=== PATIENT | male | born 1975 | race Two or more races ===

== ENCOUNTER 2016-06-21 00:17 | Emergency (ER) | payer SELFPAY ==
[~2016-06-21] VITALS: Ht 175.3 cm; Wt 70.3 kg
[2016-06-21] MEDS ORDERED: SODIUM CHLORIDE 0.9% 1,000 ML IV ONE ×2 (01:19→05:00)
[2016-06-21 02:32] LABS: DEFINITIVE VIEW TRANSMISSION; Hemoglobin 13.8 g/dL (13.5-17.5); Mean Corpuscular Hemoglobin 23.7 pg (28.0-32.0); Mean Corpuscular Hgb Conc. 30.8 g/dL (32.0-36.0); Mean Platelet Volume 8.3 fL (7.4-10.4); Platelet Count (auto) 262 10^3/uL (140-450); SUSPECT VIEW TRANSMISSION
[2016-06-21 02:34] LABS: Red Cell Distribution Width 23.6 % (11.6-16.0)
[2016-06-21 02:36] LABS: Promyelocytes % 0; Reactive Lymphocytes 0
[2016-06-21] MEDS ORDERED: LORazepam 2MG/ML-1ML VIAL IV ONE (02:45)
[2016-06-21 02:58] LABS: Partial Thromboplastin Time 22.1 sec (22.64-33.71); Prothrombin Time 10.4 sec (9.37-12.3)
[2016-06-21] MEDS ORDERED: SODIUM CHLORIDE 0.9% 250 ML IV ONE (03:05)
[2016-06-21 03:25] LABS: Metamyelocytes % 1; Myelocytes % 1; Platelet Estimate Adequate
[2016-06-21 03:26] LABS: Anisocytosis Slight; Ovalocytes FEW
[2016-06-21 03:27] LABS: White Blood Cell 7.2 10^3/uL (4.4-10.8)
[2016-06-21 03:46] LABS: Albumin 3.2 g/dL (3.4-5.0); BUN/Creatinine Ratio 9.3; Bilirubin, Total 0.2 mg/dL (0.2-1.0); Calcium 7.9 mg/dL (8.5-10.1); Potassium 3.8 mmol/L (3.5-5.1); Total Protein 6.6 g/dL (6.4-8.2)
[2016-06-21 07:24] VITALS: BP 112/65
== END 2016-06-21 07:33 | disposition home or self-care (01) ==
LOC: EDBD 00:17 → ER 00:25 → EDBD 00:25 → ER 07:33
DX: F10.129 Alcohol abuse with intoxication, unspecified (principal); Y90.9 Presence of alcohol in blood, level not specified; R07.9 Chest pain, unspecified
CPT/HCPCS: 36415; 71010; 80053; 80320; 84484; 85007; 85027; 85610; 85730; 93005; 96361; 96374; 99285; J2060

== ENCOUNTER 2018-05-03 21:29 | Emergency (ER) | payer SELFPAY ==
[~2018-05-03] VITALS: Ht 162.6 cm; Wt 54.4 kg
[2018-05-04 02:32] LABS: Eosinophils # (auto) 0 uL; Hemoglobin 12.4 g/dL (13.5-17.5); Monocytes # (auto) 0.3 uL; Neutrophils # (auto) 1.1 uL
[2018-05-04 02:33] LABS: Basophils # (auto) 0.1 uL; Basophils % (auto) 2.1 % (0.0-2.0); Eosinophils % (auto) 1.1 % (0.0-7.0); Hematocrit 39.5 % (41.0-53.0); Lymphocytes # (auto) 1.6 uL; Lymphocytes % (auto) 52.1 % (10.0-50.0); Mean Corpuscular Hemoglobin 24.7 pg (28.0-32.0); Mean Corpuscular Hgb Conc. 31.3 g/dL (32.0-36.0); Mean Corpuscular Volume 78.8 fL (80.0-100.0); Monocytes % (auto) 8.9 % (0.0-12.0); Neutrophils % (auto) 35.8 % (37.0-80.0); Nucleated Red Blood Cells % 0.2 %; Platelet Count (auto) 312 10^3/uL (140-450); Red Blood Cells 5.01 10^6/uL (4.5-5.90); White Blood Cell 3.2 10^3/uL (4.4-10.8)
[2018-05-04 02:49] LABS: Anion Gap 13 (5-15); BUN/Creatinine Ratio 8.7; Blood Urea Nitrogen 8 mg/dL (7-18); Calcium 9.2 mg/dL (8.5-10.1); Carbon Dioxide 24 mmol/L (21-32); Chloride 105 mmol/L (98-107); GFR African American 117 mL/min; GFR Non-African American 97 mL/min; Glucose 83 mg/dL (74-106); Potassium 4.3 mmol/L (3.5-5.1); Sodium 142 mmol/L (136-145)
[2018-05-04 02:59] LABS: Red Cell Distribution Width 24.5 % (11.8-14.3)
[2018-05-04] MEDS ORDERED: SODIUM CHLORIDE 0.9% 1,000 ML IVB ONE (06:46)
[2018-05-04] MEDS ORDERED: ONDANSETRON HCL 4 MG/2 ML VIAL IV ONE ×2 (07:00→12:45)
[2018-05-04] MEDS ORDERED: PROMETHAZINE HCL 25 MG/ML 1ML IV PRN (07:00)
[2018-05-04] MEDS ORDERED: NALBUPHINE HCL 10 MG/1ml INJECTION IV ONE (12:45)
[2018-05-04 13:08] LABS: Urine WBC None Seen /hpf (0 - 3)
[2018-05-04] MEDS ORDERED: diphenhdrAMINE HCL 50 MG/1 ML VL ONE (13:09)
[2018-05-04] MEDS ORDERED: diphenhdrAMINE HCL 50 MG/1 ML VL IV ONE (13:15)
[2018-05-04 13:27] LABS: Urine Bacteria NONE SEEN /hpf (None Seen); Urine Blood Negative /uL (Negative); Urine Specific Gravity 1.022 (1.001-1.035)
[2018-05-04 13:42] LABS: Amphetamine Screen, Urine NEGATIVE (NEGATIVE); Barbiturate Scree,Urine NEGATIVE (NEGATIVE); Benzodiazephine Screen, Urine POSITIVE (NEGATIVE); Cannabinoid Screen, Urine POSITIVE (NEGATIVE); Cocaine Screen, Urine NEGATIVE (NEGATIVE); Opiate Scree,Urine NEGATIVE (NEGATIVE); Phencyclidine Screen, Urine NEGATIVE (NEGATIVE)
[2018-05-04] MEDS ORDERED: LORazepam 0.5 MG TAB PO ONE (14:45)
[2018-05-04 15:30] VITALS: BP 138/62
== END 2018-05-04 16:04 | disposition home or self-care (01) ==
LOC: EDBD 21:29 → ER 21:37
DX: K29.20 Alcoholic gastritis without bleeding (principal); F12.10 Cannabis abuse, uncomplicated; G40.802 Other epilepsy, not intractable, without status epilepticus; F10.920 Alcohol use, unspecified with intoxication, uncomplicated; Y90.0 Blood alcohol level of less than 20 mg/100 ml; Z88.6 Allergy status to analgesic agent; Z88.8 Allergy status to other drugs, medicaments and biological substances
CPT/HCPCS: 36415; 74176; 80048; 80307; 81001; 83690; 84443; 85025; 96361; 96374; 96375; 96376; 99284; J1200; J2300; J2405; J2550; J7030; 82542

== ENCOUNTER 2018-10-18 09:24 | Inpatient (IN) | payer MEDICAID | END 2018-10-25 14:50 | disposition home or self-care (01) | LOC: ER 09:24 → TELE 11:24 → TELE-WESTW 14:12 | PROC: 0DB78ZX Excision of Stomach, Pylorus, Via Natural or Artificial Opening Endoscopic, Diagnostic (ICD-10-PCS; principal; 2018-10-21 11:54) | DX: K29.70 Gastritis, unspecified, without bleeding (principal); K85.90 Acute pancreatitis without necrosis or infection, unspecified; K76.0 Fatty (change of) liver, not elsewhere classified; E87.1 Hypo-osmolality and hyponatremia; D63.8 Anemia in other chronic diseases classified elsewhere; K27.9 Peptic ulcer, site unspecified, unspecified as acute or chronic, without hemorrhage or perforation; K57.90 Diverticulosis of intestine, part unspecified, without perforation or abscess without bleeding; K59.00 Constipation, unspecified ==

== ENCOUNTER 2018-11-20 14:17 | Inpatient (IN) | payer MEDICAID ==
[~2018-11-20] VITALS: Ht 167.6 cm; Wt 58.6 kg
[2018-11-20] MEDS ORDERED: AMMONIA 0.33 ML INHALANT IN ONE (14:34)
[2018-11-20 15:32] LABS: Basophils # (auto) 0 uL; Eosinophils # (auto) 0 uL; Lymphocytes # (auto) 1.3 uL; Monocytes # (auto) 0.5 uL; Neutrophils # (auto) 1.6 uL; White Blood Cell 3.4 10^3/uL (4.4-10.8)
[2018-11-20 15:37] LABS: Basophils % (auto) 0.8 % (0.0-2.0); Eosinophils % (auto) 0.6 % (0.0-7.0); Hematocrit 33.8 % (41.0-53.0); Hemoglobin 10.3 g/dL (13.5-17.5); Lymphocytes % (auto) 37.5 % (10.0-50.0); Mean Corpuscular Hemoglobin 22.8 pg (28.0-32.0); Mean Corpuscular Hgb Conc. 30.5 g/dL (32.0-36.0); Mean Corpuscular Volume 74.7 fL (80.0-100.0); Monocytes % (auto) 13.8 % (0.0-12.0); Neutrophils % (auto) 47.3 % (37.0-80.0); Platelet Count (auto) 190 10^3/uL (140-450); Red Blood Cells 4.52 10^6/uL (4.5-5.90)
[2018-11-20 15:40] LABS: Red Cell Distribution Width 28.8 % (11.8-14.3)
[2018-11-20] MEDS ORDERED: SODIUM CHLORIDE 0.9% 1,000 ML IV ONE (15:49)
[2018-11-20] MEDS ORDERED: SODIUM CHLORIDE 0.9% 500 ML IVB ONE (15:49)
[2018-11-20 15:51] LABS: Potassium 4.2 mmol/L (3.5-5.1)
[2018-11-20 15:59] LABS: Albumin 4.2 g/dL (3.4-5.0); BUN/Creatinine Ratio 10.1; Bilirubin, Total 0.3 mg/dL (0.2-1.0); Calcium 8.8 mg/dL (8.5-10.1); Magnesium 2.6 mg/dL (1.6-2.6); Total Protein 7.8 g/dL (6.4-8.2)
[2018-11-20] MEDS ORDERED: PROMETHAZINE HCL 25 MG/ML 1ML IV PRN (16:00)
[2018-11-20] MEDS ORDERED: MORPHINE SULFATE 4 MG/ML SYR/VIAL IV ONE (16:00)
[2018-11-20] MEDS ORDERED: DOCUSATE SOD 100 MG CAP PO PRN (17:45)
[2018-11-20] MEDS ORDERED: ALBUTEROL SULF 2.5 MG/0.5ML(0.5%) NEB SOLN NEB PRN (17:45)
[2018-11-20] MEDS ORDERED: MORPHINE SULF INJ 2 MG/ML SYRINGE 1ML IV PRN ×2 (17:45)
[2018-11-20] MEDS ORDERED: ONDANSETRON HCL 4 MG/2 ML VIAL IV PRN (17:45)
[2018-11-20] MEDS ORDERED: IPRATROPIUM BROM 0.5 MG/2.5ML INH SOL NEB PRN (17:45)
[2018-11-20] MEDS ORDERED: ACETAMINOPHEN 500 MG TAB PO PRN (17:45)
[2018-11-20] MEDS ORDERED: NITROGLYCERIN 0.4 MG SL TAB SL PRN (17:45)
[2018-11-20 18:42] LABS: Urine Bacteria NONE SEEN /hpf (None Seen); Urine Blood Negative /uL (Negative); Urine Mucus FEW (None Seen); Urine Specific Gravity 1.015 (1.001-1.035); Urine WBC 1 /hpf (0 - 3)
[2018-11-20 18:52] LABS: Amphetamine Screen, Urine NEGATIVE (NEGATIVE); Barbiturate Scree,Urine NEGATIVE (NEGATIVE); Cannabinoid Screen, Urine NEGATIVE (NEGATIVE); Cocaine Screen, Urine NEGATIVE (NEGATIVE); Opiate Scree,Urine NEGATIVE (NEGATIVE); Phencyclidine Screen, Urine NEGATIVE (NEGATIVE)
[2018-11-20 19:45] LABS: Benzodiazephine Screen, Urine NEGATIVE (NEGATIVE)
--- NOTE | 2018-11-20 20:00 | NUR ---
Patient reports pain Patent asked if he had ever taken [place] before and if he has had a reaction of any kind. Patient stated he had taken [place] before and he denies any type of reaction. Addendum: 11/21/18 at 0825 by FRANCE CARRILLO RN wrong time 2200
[2018-11-20] MEDS ORDERED: diphenhdrAMINE HCL 50 MG/1 ML VL ONE (20:08)
[2018-11-20] MEDS: FOLIC ACID 1 MG, MULTIPLE VITAMIN 10 ML, MAGNESIUM SULF SDV 50% 8 MEQ, THIAMINE INJ 100... INJ SCH ×5 (20:24)
[2018-11-20] MEDS: diphenhdrAMINE HCL 50 MG/1 ML VL IV ONE ×2 (20:26→22:47)
--- NOTE | 2018-11-20 21:30 | NUR ---
Telemetry admit from ER NABEEL ZUÑIGA admitted to Telemetry unit SBAR NOT received BY ER. Patient oriented to FRANCE CARRILLO, primary RN, unit, room, bed, and unit policies regarding patient care and visiting hours. Patient assessed and determined to be at risk or positive for seizure activity. Bed rails padded, glass sander remains on patient. Patient now on continuous telemetry monitoring, reading SR to ST. Assumed care of patient, awake and alert x4. No S/S of distress/SOB on room air. Reports ABD pain. Patient states he can not move his legs due to a seizure he had. Instructed on POC and to call for assist PRN, will continue to monitor for changes Q1hr and PRN. All questions and concerns addressed, patient verbalized understanding.
--- NOTE | 2018-11-20 21:38 | NUR ---
PT ASSESSED FOR PRN MED NEB TX. SPO2 96% ON RA, HR 90. PT DENIES ANY RESPIRATORY DISTRESS. NO TX INDICATED. PT IS AWARE TO HAVE RT PAGED IF TX NEEDED.
[2018-11-20 21:39] VITALS: BP 144/103
[2018-11-20 22:00] VITALS: BP 135/104
--- NOTE | 2018-11-20 22:20 | NUR ---
Spoke with Hospitalist Santhosh Patient having alcohol with draw and had allergic reaction to morphine in ER requesting PRN Benadryl orders received see eMAR
[2018-11-20] MEDS: LEVETIRACETAM 500 MG TAB PO SCH (22:22)
[2018-11-20] MEDS: HYDROcodone-ACET 5/325MG TAB PO PRN (22:23)
--- NOTE | 2018-11-20 22:45 | NUR ---
Patient reports Itching all over and Itching in his throat.
--- NOTE | 2018-11-20 22:47 | NUR ---
Benadryl given see eMAR.
[2018-11-20] MEDS ORDERED: chlordiazePOXIDE HCL 25 MG CAP PO SCH (23:00)
[2018-11-20] MEDS: LORazepam 2MG/ML-1ML VIAL IV PRN (23:05)
[2018-11-21] MEDS: chlordiazePOXIDE HCL 25 MG CAP PO SCH ×4 (00:28→23:48)
--- NOTE | 2018-11-21 02:38 | NUR ---
Rounds Patient sleeping in supine position HOB at 30 degrees. No S/S of distress, SOB or Seizure like activity. Right leg bent up, foot flat. left leg resting on bed bent in knee bent. Patient displays he has ability to move legs, despite previous reports of not being able to move legs and or walk.
[2018-11-21 04:40] VITALS: BP 111/73
[2018-11-21] MEDS: diphenhdrAMINE HCL 50 MG/1 ML VL IV PRN ×4 (05:21→22:02)
--- NOTE | 2018-11-21 07:30 | NUR ---
Opening Shift Note Assumed care of patient, awake and alert. No S/S of distress/SOB. Pain reported 12/21. Pain management options discussed with patient. Instructed on POC and to call for assist PRN, will continue to monitor for changes Q1hr and PRN.
[2018-11-21 08:00] VITALS: BP 126/80
[2018-11-21 09:00] VITALS: BP 126/80
--- NOTE | 2018-11-21 09:46 | NUR ---
Respiratory note: WENT IN TO ASSESS PATIENT FOR PRN BREATHING TX. PATIENT IS COMFORTABLY SLEEPING AT THIS TIME. WILL GO BACK LATER TO ASSESS PATIENT.
[2018-11-21] MEDS ORDERED: FAMOTIDINE 20 MG TAB PO SCH (10:00)
[2018-11-21] MEDS: LEVETIRACETAM 500 MG TAB PO SCH ×2 (10:46→22:02)
[2018-11-21] MEDS: HYDROcodone-ACET 5/325MG TAB PO PRN (10:47)
[2018-11-21 13:00] VITALS: BP 123/84
[2018-11-21] MEDS ORDERED: TEMAZEPAM 15 MG CAP PO PRN (13:45)
--- NOTE | 2018-11-21 14:15 | NUR ---
Respiratory note: ASSESSED PATIENT FOR PRN BREATHING TX. PATIENT IS AWAKE AND ALERT, NO RESPIRATORY DISTRESS GIVEN. PATIENT. PATIENT IS CURRENTLY ON ROOM AIR, SPO2 100%, RR 18, HR 65. PATIENT IS AWARE TO HAVE RT PAGED IF BREATHING TX IS NEEDED. WILL CONTINUE TO MONITOR PATIENT.
[2018-11-21] MEDS: FOLIC ACID 1 MG, MULTIPLE VITAMIN 10 ML, MAGNESIUM SULF SDV 50% 8 MEQ, THIAMINE INJ 100... INJ SCH ×5 (14:30)
[2018-11-21] MEDS: HYDROmorphone HCL 2 MG/ML VL IV PRN ×2 (16:29→20:32)
[2018-11-21 17:23] VITALS: BP 140/93
--- NOTE | 2018-11-21 19:00 | NUR ---
OPENING NOTE Received report from day shift RN. Patient is A&O X's 4 with no s/s of distress. Patient reports abdominal pain at this time. Will medicate as ordered. Educated patient on POC and to use call light when in need of assistance. Patient verbalized understanding. Bed is in lowest/locked position with side rails up X's 2 and call light is within reach of patient. Will continue to monitor for changes and round hourly/PRN. Bed linen was changed at this time for patient.
[2018-11-21 22:00] VITALS: BP 110/80
[2018-11-21] MEDS: LORazepam 2MG/ML-1ML VIAL IV PRN (23:49)
[2018-11-22 05:00] VITALS: BP 120/64
--- NOTE | 2018-11-22 07:30 | NUR ---
Opening Shift Note Assumed care of patient, sleeping. No S/S of distress/SOB or pain. Instructed on POC and to call for assist PRN, will continue to monitor for changes Q1hr and PRN.
[2018-11-22 08:00] VITALS: BP 103/55
[2018-11-22 10:19] VITALS: BP 103/66
[2018-11-22] MEDS: LEVETIRACETAM 500 MG TAB PO SCH ×2 (10:33→21:57)
--- NOTE | 2018-11-22 11:38 | NUR ---
Respiratory note: PT ASSESSED FOR PRN MED NEB TX. NO SOB NOTED, TX IS NOT INDICATED. POX 100% ON RA, HR 61, RR 14, B/S ARE CLEAR AND DIMINISHED THROUGHOUT. PT IS AWARE TO PRESS THE CALL LIGHT IF HE FEELS SOB TO RECEIVE A MED NEB TX.
[2018-11-22] MEDS: chlordiazePOXIDE HCL 25 MG CAP PO SCH (13:16)
[2018-11-22] MEDS: FOLIC ACID 1 MG, MULTIPLE VITAMIN 10 ML, MAGNESIUM SULF SDV 50% 8 MEQ, THIAMINE INJ 100... INJ SCH ×5 (13:16)
[2018-11-22] MEDS: HYDROmorphone HCL 2 MG/ML VL IV PRN ×3 (13:17→21:51)
[2018-11-22 14:02] LABS: Hemoglobin 10.4 g/dL (13.5-17.5)
[2018-11-22 14:05] LABS: Hematocrit 33.6 % (41.0-53.0)
[2018-11-22 14:37] VITALS: BP 108/68
--- NOTE | 2018-11-22 16:30 | NUR ---
IV removal IV DC'd with clean sterile technique from right wrist. catheter fully intact. Pressure dressing applied to site. Patient tolerated well.
--- NOTE | 2018-11-22 16:52 | NUR ---
assessment Per consult help with medications. Patient informed me he had a prescription for Ativan and [facility] will not fill RX due to multiple prescriptions being filled by him and his sister for the same drug. I informed patient he would have to speak with the pharmacy and his MD regarding his Ativan RX. Patient verbalized understanding. Addendum: 11/22/18 at 1655 by Felipa Edgar Amended: Links added.
[2018-11-22 17:10] VITALS: BP 104/75
[2018-11-22] MEDS: diphenhdrAMINE HCL 50 MG/1 ML VL IV PRN ×2 (17:36→22:28)
--- NOTE | 2018-11-22 18:36 | NUR ---
Respiratory note: PT IN NO DISTRESS. PT IN NO NEED OF SVN AT THIS TIME. BREATH SOUNDS ARE CLEAR TO DIMINISHED BILATERALLY. PT KNOWS TO CALL NURSE IF SOB OCCURS.
--- NOTE | 2018-11-22 18:48 | NUR ---
2 iv attempts. unsuccessful iv placement. will endorse to machinist 2nd shift.
--- NOTE | 2018-11-22 20:00 | NUR ---
Opening Shift Note Assumed care of patient, awake and alert. No S/S of distress/SOB or pain. Instructed on POC and to call for assist PRN, will continue to monitor for changes Q1hr and PRN. 22 gauge angiocath inserted to right lower extremity after 2 attempts by Charge Nurse.
[2018-11-22] MEDS: PANTOPRAZOLE 40 MG TAB PO SCH (21:57)
[2018-11-22 22:00] VITALS: BP 115/67
[2018-11-23] MEDS: chlordiazePOXIDE HCL 25 MG CAP PO SCH ×2 (00:07→11:44)
[2018-11-23] MEDS: diphenhdrAMINE HCL 50 MG/1 ML VL IV PRN ×2 (00:11→08:09)
[2018-11-23 05:00] VITALS: BP 114/63
[2018-11-23] MEDS: HYDROmorphone HCL 2 MG/ML VL IV PRN (07:23)
--- NOTE | 2018-11-23 07:30 | NUR ---
RECEIVED REPORT FROM NIGHT NURSE. PATIENT RESTING IN BED, NO DISTRESS NOTED. WILL CONTINUE TO MONITOR.
--- NOTE | 2018-11-23 08:31 | NUR ---
Respiratory note: ASSESSED PT FOR PRN TX PT WAS AWAKE AND ALERT NO RESP DISTRESS NOTED. BS ARE CLEAR, NO INDICATION FOR TX AT THIS TIME. PT KNOWS TO HAVE RT PAGED IF TX IS NEEDED.
[2018-11-23 09:01] VITALS: BP 121/95
[2018-11-23] MEDS: PANTOPRAZOLE 40 MG TAB PO SCH (09:43)
[2018-11-23] MEDS: LEVETIRACETAM 500 MG TAB PO SCH (09:43)
[2018-11-23] MEDS ORDERED: PANT40T PO (09:53)
[2018-11-23] MEDS: FOLIC ACID 1 MG, MULTIPLE VITAMIN 10 ML, MAGNESIUM SULF SDV 50% 8 MEQ, THIAMINE INJ 100... INJ SCH ×5 (11:44)
[2018-11-23 12:42] VITALS: BP 106/61
--- NOTE | 2018-11-23 14:03 | NUR ---
Discharge instructions given as ordered. Encourage to follow up with PMD as instructed. All questions and concerns addressed. Patient verbalized understanding. Medication reconciliation form completed and copy given to patient. IV removed with catheter intact, pressure dressing applied. Telemetry unit returned to ICU. Patient refused wheelchair, walked to bus stop with all personal belongings, bus pass given. No distress noted at time of departure.
[2018-11-24] MEDS ORDERED: chlordiazePOXIDE HCL 25 MG CAP PO SCH (12:00)
== END 2018-11-23 14:00 | disposition home or self-care (01) | DRG 241 ==
LOC: EDBD 14:17 → ER 14:30 → TELE 14:31 → TELE-WESTW 21:01
PROVIDERS: ADMIT Nurse Practitioner Acute Care; ATTEND Internal Medicine
DX: K29.20 Alcoholic gastritis without bleeding (principal); D50.9 Iron deficiency anemia, unspecified; F10.229 Alcohol dependence with intoxication, unspecified; F10.239 Alcohol dependence with withdrawal, unspecified; F12.90 Cannabis use, unspecified, uncomplicated; G40.909 Epilepsy, unspecified, not intractable, without status epilepticus; I10 Essential (primary) hypertension; Z88.3 Allergy status to other anti-infective agents; Z88.5 Allergy status to narcotic agent; Z88.8 Allergy status to other drugs, medicaments and biological substances; F17.210 Nicotine dependence, cigarettes, uncomplicated; Z59.0 Homelessness; Z80.1 Family history of malignant neoplasm of trachea, bronchus and lung; Z82.49 Family history of ischemic heart disease and other diseases of the circulatory system; Z83.3 Family history of diabetes mellitus; Z91.19 Patient's noncompliance with other medical treatment and regimen
CPT/HCPCS: 36415; 71046; 74176; 80053; 80307; 80320; 81001; 82150; 83690; 83735; 85014; 85018; 85025; 87081; 93005; 96361; 96374; 96375; G0378

== ENCOUNTER 2023-07-16 02:06 | Emergency (ER) | payer MEDICAID, OTHER ==
[~2023-07-16] VITALS: Ht 172.7 cm; Wt 81.7 kg
[~2023-07-16 02:06] MED LIST: PANT40T PO
[2023-07-16] MEDS: ONDANSETRON HCL 4 MG/2 ML VIAL IV ONE (02:57)
[2023-07-16] MEDS: MORPHINE SULFATE 4 MG/ML SYR/VIAL IV ONE (02:58)
[2023-07-16] MEDS: diphenhdrAMINE HCL 50 MG/1 ML VL IV ONE ×2 (03:16→04:42)
[2023-07-16] MEDS: HYDROmorphone HCL 2 MG/ML VL/or syr IV ONE (04:42)
[2023-07-16 08:00] VITALS: TEMP 97.7
[2023-07-16 09:00] VITALS: BP 133/83; PULSE 76; RESP 16; O2SAT 92
== END 2023-07-16 14:02 | disposition home or self-care (01) ==
LOC: EDBD 02:06 → ER 02:06
DX: M25.552 Pain in left hip (principal); I10 Essential (primary) hypertension; F17.210 Nicotine dependence, cigarettes, uncomplicated; Z90.49 Acquired absence of other specified parts of digestive tract; Z79.899 Other long term (current) drug therapy; Z88.8 Allergy status to other drugs, medicaments and biological substances
CPT/HCPCS: 72170; 73502; 96374; 96375; 96376; 99285; J1170; J1200; J2270; J2405

== ENCOUNTER 2023-08-27 15:49 | Emergency (ER) | payer OTHER ==
[~2023-08-27] VITALS: Ht 167.6 cm; Wt 72.7 kg
[2023-08-28] MEDS ORDERED: HYDROcodone-ACET 5/325MG TAB PO ONE (02:15)
[2023-08-28] MEDS: traMADol HCL 50 MG TAB PO ONE (03:22)
[2023-08-28 04:31] VITALS: BP 124/93; PULSE 102; RESP 16; TEMP 97.8; O2SAT 98
== END 2023-08-28 04:32 | disposition home or self-care (01) ==
LOC: ER 15:49 → EDBD 15:49 → EDSEX 15:49 → ER 08-28 04:32
DX: S13.4XXA Sprain of ligaments of cervical spine, initial encounter (principal); S73.102A Unspecified sprain of left hip, initial encounter; S09.90XA Unspecified injury of head, initial encounter; I10 Essential (primary) hypertension; F17.210 Nicotine dependence, cigarettes, uncomplicated; F12.10 Cannabis abuse, uncomplicated; Z90.49 Acquired absence of other specified parts of digestive tract; Z88.6 Allergy status to analgesic agent; Z88.3 Allergy status to other anti-infective agents; W05.0XXA Fall from non-moving wheelchair, initial encounter; Y93.89 Activity, other specified; Y92.89 Other specified places as the place of occurrence of the external cause; Y99.8 Other external cause status
CPT/HCPCS: 70450; 71250; 72125; 73030; 74176